=== PATIENT | female | born 1940 | race Two or more races ===

== ENCOUNTER 2016-07-14 13:30 | Emergency (ER) | payer SELFPAY | END 2016-07-14 14:44 | disposition left against medical advice (07) | LOC: ER 14:37 | DX: R51 Headache (principal) ==

== ENCOUNTER 2022-06-20 10:42 | Emergency (ER) | payer OTHER ==
[~2022-06-20] VITALS: Ht 160 cm; Wt 66.0 kg
[2022-06-20] MEDS ORDERED: MAGNESIUM/ALUMINUM HYDROXIDE/SIMETHICONE 30ML UDC PO STA (14:32)
[2022-06-20] MEDS ORDERED: ACETAMINOPHEN 325MG TABLET PO STA (14:32)
[2022-06-20 15:29] LABS: BASOPHILS % 0.4 % (0.0-2.0); EOSINOPHILS % 0.4 % (0.0-5.0); HEMATOCRIT. 40.2 % (36.0-48.0); HEMOGLOBIN. 13.3 g/dL (12.0-16.0); LYMPHOCYTES % 17.4 % (20.0-50.0); MEAN CORPUSCULAR VOLUME 87.9 fL (81.0-99.0); MEAN PLATELET VOLUME 10.2 fl (7.4-10.4); MONOCYTES % 8.3 % (2.0-8.0); NEUTROPHILS % 73.5 % (40.0-76.0); PLATELET 207 x1000/uL (130-400); RED BLOOD CELL COUNT 4.57 mill/uL (4.2-5.4); RED CELL DISTRIBUTION WIDTH 14.2 % (11.6-14.6)
[2022-06-20 15:36] LABS: PROTHROMBIN TIME 10.9 sec (9.6-11.0)
[2022-06-20 15:42] LABS: CHLORIDE 103 mEq/L (98-107)
[2022-06-20 15:54] LABS: ETHANOL BLOOD < 10 mg/dL
[2022-06-20 15:58] LABS: CLARITY URINE CLEAR (CLEAR); COLOR URINE YELLOW (YELLOW); KETONES URINE TRACE (NEGATIVE); LEUKOCYTE ESTERASE URINE TRACE (NEGATIVE); NITRITE URINE NEGATIVE (NEGATIVE); OCCULT BLOOD URINE NEGATIVE (NEGATIVE); PH URINE 5.5 (4.5-8.0); PROTEIN URINE NEGATIVE (NEGATIVE); SPECIFIC GRAVITY URINE 1.016 (1.005-1.030); UROBILINOGEN URINE 0.2 E.U./dL (0.2-1.0)
[2022-06-20 16:20] LABS: *AMPHETAMINES SCREEN URINE NEGATIVE (NEGATIVE); *BARBITURATES SCREEN URINE NEGATIVE (NEGATIVE); *BENZODIAZEPINES SCREEN URINE NEGATIVE (NEGATIVE); *COCAINE SCREEN URINE NEGATIVE (NEGATIVE); CANNABINOID URINE SCREEN NEGATIVE (NEGATIVE); METHADONE URINE SCREEN NEGATIVE (NEGATIVE); OPIATES URINE SCREEN NEGATIVE (NEGATIVE); PHENCYCLIDINE URINE SCREEN NEGATIVE (NEGATIVE)
[2022-06-20] MEDS ORDERED: ACET-2708 MT (16:54)
[2022-06-20] MEDS ORDERED: T3 PO (17:12)
[2022-06-20 17:53] VITALS: BP 122/80
== END 2022-06-20 17:56 | disposition home or self-care (01) ==
LOC: ER 10:42
DX: K58.9 Irritable bowel syndrome, unspecified (principal); N28.9 Disorder of kidney and ureter, unspecified; J45.909 Unspecified asthma, uncomplicated
CPT/HCPCS: 36415; 74176; 80053; 80305; 80320; 81003; 83605; 85025; 86850; 86900; 99284; G0480